=== PATIENT | male | born 1950 | race Caucasian/White ===

== ENCOUNTER 2017-12-30 18:07 | Inpatient (IN) | payer MEDICARE ==
[~2017-12-30] VITALS: Ht 152.4 cm; Wt 109.8 kg
[2017-12-30 18:10] VITALS: BP 232/97
[2017-12-30] MEDS ORDERED: VASOTEC20 MG PO (18:23)
[2017-12-30] MEDS ORDERED: AMLODIPINE BESY10 MG PO (18:23)
[2017-12-30] MEDS ORDERED: NEURONTIN 300300 M1 PO (18:24)
[2017-12-30] MEDS ORDERED: ASPIR 8181 MG PO (18:24)
[2017-12-30] MEDS ORDERED: CARDURA4 MG PO (18:24)
[2017-12-30 18:31] LABS: ABSOLUTE BASOPHILS 0.1 thou/uL (0.0-0.2); ABSOLUTE EOSINOPHILS 0.2 thou/uL (0.0-0.7); ABSOLUTE LYMPHOCYTES 1.8 thou/uL (0.8-5.3); ABSOLUTE MONOCYTES 0.5 thou/uL (0.0-1.2); ABSOLUTE NEUTROPHILS 4.5 thou/uL (1.6-8.1); BASOPHILS 0.8 %; EOSINOPHILS 2.4 %; HEMOGLOBIN 14.8 gm/dL (14.0-18.0); LYMPHOCYTES 25.6 %; MCH 31.3 pg (26.0-34.0); MCHC 34.3 g/dL (28.0-37.0); MCV 91.1 fL (80.0-100.0); MONOCYTES 7.1 %; MPV 8.8 fl. (7.2-11.1); NUCLEATED RBCS 0 /100WBC; PLATELET COUNT* 235 thou/uL (150-400); POLYS 64.1 %; RBC 4.72 mil/uL (4.50-6.00); RDW-CV 13.3 % (10.5-14.5)
[2017-12-30 18:39] LABS: ANION GAP 6 mmol/L (7-16); BUN 13 mg/dL (7-18); CALCIUM 8.7 mg/dL (8.5-10.1); CHLORIDE 103 mmol/L (98-107); CO2 29 mmol/L (21-32); CREATININE 1.2 mg/dL (0.6-1.3); GLUCOSE 136 mg/dL (70-99); POTASSIUM 3.6 mmol/L (3.5-5.1); SODIUM 138 mmol/L (136-145)
[2017-12-30 18:50] LABS: ALKALINE PHOSPHATASE 102 U/L (46-116); LIPASE 229 U/L (73-393); NT-PRO BRAIN NAT PEPTIDE 185 pg/mL (<300); SGOT 19 U/L (15-37); SGPT 27 U/L (30-65); TOTAL BILIRUBIN 0.3 mg/dL (<0.1-1.0); TOTAL PROTEIN 7.2 g/dL (6.4-8.2); TROPONIN-I LEVEL <0.06 ng/mL (<0.06)
[2017-12-30 19:29] VITALS: BP 158/73
[2017-12-30 20:00] VITALS: BP 157/82
[2017-12-30 23:40] LABS: URINE BILIRUBIN NEGATIVE (Negative); URINE BLOOD NEGATIVE (Negative); URINE CLARITY CLEAR; URINE COLOR STRAW; URINE GLUCOSE-RANDOM NEGATIVE (Negative); URINE KETONES NEGATIVE (Negative); URINE LEUKOCYTES-REFLEX NEGATIVE (Negative); URINE NITRITE-REFLEX NEGATIVE (Negative); URINE PROTEIN NEGATIVE (Negative); URINE SPECIFIC GRAVITY <= 1.005 (1.005-1.030); URINE UROBILINOGEN 0.2 E.U./dl (0.2-1.0)
[2017-12-31] VITALS: BP 158/63
[2017-12-31 00:59] LABS: HEMATOCRIT 40.7 % (42.0-52.0); HEMOGLOBIN 13.6 gm/dL (14.0-18.0); MCH 30.5 pg (26.0-34.0); MCHC 33.4 g/dL (28.0-37.0); MCV 91.4 fL (80.0-100.0); MPV 8.8 fl. (7.2-11.1); RBC 4.45 mil/uL (4.50-6.00); RDW-CV 13.3 % (10.5-14.5); WBC 5.5 thou/uL (4.0-11.0)
[2017-12-31 01:11] LABS: ANION GAP 7 mmol/L (7-16); BUN 12 mg/dL (7-18); CALCIUM 8.4 mg/dL (8.5-10.1); CHLORIDE 106 mmol/L (98-107); CO2 30 mmol/L (21-32); CREATININE 1.1 mg/dL (0.6-1.3); GLUCOSE 108 mg/dL (70-99); POTASSIUM 3.8 mmol/L (3.5-5.1); SODIUM 143 mmol/L (136-145); TROPONIN-I LEVEL <0.06 ng/mL (<0.06)
--- NOTE | 2017-12-31 02:29 | NUR ---
PT ADMITTED ON TELE FLOOR AT 1935 . ACCOMPANIED BY ER NURSE AND . PT IS ALERT, AWAKE, ORIENTED X4. AMBULATES TO BED ON HIS OWN. STEADY ON HIS FEET. VVS. ADMISSION ASSESSMENT AND HISTORY OBTAINED. REFER TO CHARTING. NO PAIN REPORTED. 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 MEDS GIVEN ORDERED. SOME BP MEDS WERE RESTARTED ON PT REQUEST AND AFTER OK RECEIVED FROM DR REGULATORY SPECIALIST. ENALAPRIL NOT GIVEN LISINORPIL WAS GIVEN ( DUPLICATION REASON). PT LAYING IN BED, EDUCATED ABOUT THE USE OF CALL LIGHT WHEN HELP IS NEEDED. CARDIO CONSULTED. PT IS NPO AFTER MIDNIGHT FOR CONSULT IN THE MORNING. WILL CONTINUE TO MONITOR.
[2017-12-31 04:00] VITALS: BP 162/80
--- NOTE | 2017-12-31 05:30 | NUR ---
PT HAS REFUSED FLU VACCINE
--- NOTE | 2017-12-31 07:00 | NUR ---
PT NITRO PILL PLACED IN PIXIS ( RETURN TO PHARMACY ) BOX
[2017-12-31 08:00] VITALS: BP 179/85
[2017-12-31 11:18] LABS: CHOLESTEROL 191 mg/dL (<200); HDL CHOLESTEROL 40 mg/dL (>40); LDL CHOLESTEROL 133 mg/dL (<100); TC:HDL 4.8 Ratio (Not establshd); TRIGLYCERIDE 93 mg/dL (<150); VLDL 19 mg/dL (<40)
[2017-12-31 11:19] LABS: SERUM ASSESSMENT Clear
[2017-12-31 11:59] VITALS: BP 174/83
--- NOTE | 2017-12-31 12:00 | EKG ---
[place] [address] ELECTROCARDIOGRAM REPORT Name: BROOK EWING Room: [address] ADM IN .R.#: [id number] Admission: 12/30/17 Attend Phys: Cornelius Rico, Discharge: Date of : 48 Report #: [id number] THIS REPORT FOR: //name// [facility] ED Test Date: 2017-12-30 Test Time: 18:12:23 Pat Name: BROOK EWING Department: Room: [facility] Gender: M Physical Biochemist: CLIFTON : 1950 Requested By: Durga Wisdom Order Number: [id number] MD: Hoang Hazel Measurements Intervals [place] Rate: 75 P: 79 [place]: 166 QRS: -12 QRSD: 111 T: 10 QT: 400 QTc: 447 Interpretive Statements Sinus rhythm Probable left atrial enlargement RSR' in V1 or V2, right VCD or RVH No previous ECG available for comparison Electronically Signed On 12-31-2017 12:00:02 CDT by Hoang Hazel [email or web address] <ELECTRONICALLY SIGNED> By: Hoang Hazel MD, FACC 12/31/17 1200 11 11 Hoang Hazel MD, [facility] /EPI
[2017-12-31 16:32] VITALS: BP 180/79
--- NOTE | 2017-12-31 18:14 | NUR ---
BELL RESTING IN BED. UP AD MADELIN IN ROOM. DENIES CURRETN CHEST PAIN. PLAN FOR CARDIAC CATH TOMORROW. VITAL SIGNS STABLE. HOURLY ROUNDING COMPLETED FOR PATIENT SAFETY. NPO AFTER MIDNIGHT FOR CARDIAC CATH
[2017-12-31 19:45] VITALS: BP 167/87
[2018-01-01] VITALS (13 sets, daily range): BP systolic 138–172; BP diastolic 68–88
[2018-01-01 04:56] LABS: HEMATOCRIT 42.2 % (42.0-52.0); HEMOGLOBIN 14.2 gm/dL (14.0-18.0); MCH 30.8 pg (26.0-34.0); MCHC 33.6 g/dL (28.0-37.0); MCV 91.7 fL (80.0-100.0); MPV 9.1 fl. (7.2-11.1); RBC 4.6 mil/uL (4.50-6.00); RDW-CV 13.4 % (10.5-14.5); WBC 6.5 thou/uL (4.0-11.0)
[2018-01-01 05:12] LABS: CALCIUM 8.7 mg/dL (8.5-10.1); CREATININE 1.2 mg/dL (0.6-1.3); MAGNESIUM 2.2 mg/dL (1.8-2.4)
--- NOTE | 2018-01-01 05:50 | NUR ---
END SHIFT: PT RESTED WELL. NO COMPLAINTS, NO PAIN. NSR/SB. HAS REMAINED NPO SINCE MN. AWAITING CATH PROCEDURE TODAY. ASSESSMENT UNCHANGED. VSS. SAFETY PRECAUTIONS IN PLACE. CALL LIGHT IN REACH. PERFORMED HOURLY ROUNDING. WILL CONT TO MONITOR.
--- NOTE | 2018-01-01 09:11 | CON ---
[address] [address] CONSULTATION Name: BROOK EWING Room: [address] IN ..#: [id number] Admission: 12/30/17 Attend Phys: Cornelius Rico, Discharge: Date of : 48 Report #: [id number] THIS REPORT FOR: //name// CC: Von Rico DATE OF SERVICE: 12/31/2017 INPATIENT CONSULTATION REASON FOR CONSULTATION: Chest pain. HISTORY OF PRESENT ILLNESS: The patient is a 67-year-old man with a history of prior bypass surgery, had a severe episode of centrally located and left-sided chest discomfort yesterday. He had this episode, which lasted 5-15 minutes long. His blood pressure is significantly elevated. It would not come down even after rechecking it and relaxing. He went to the Emergency Room and his blood pressure was still elevated and his ECG demonstrates a sinus rhythm, somewhat poor R-wave progression, but normal ST segments. This morning, his blood pressure is still elevated, but he is not having chest pain. He denies orthopnea or PND. He has been somewhat short of breath. He denies fevers or chills. He admits this chest pain has been going off and on for about a week and his symptoms did improve with his nitro and that also helped his blood pressure. PAST MEDICAL HISTORY: Somewhat complex. He had had a 3-vessel bypass surgery in 2000, he thinks, he spends his owusu in [place] and had bypass surgery in [facility] in the setting of an MD. Apparently, he had some bleeding postoperatively when he was on Plavix likely because of his MD and then had to have a pericardial window. He has a history of peripheral vascular disease, had a stent in his right iliac artery, which was also placed in [place], he thinks about 3 years ago. He does see a corporation lawyer fairly regularly in [place] at the side of his bypass and he reports he had a normal stress test within the last 12 months. He has a history of hypertension as noted above, hyperlipidemia. HOME MEDICATIONS: Include aspirin 81 mg daily, gabapentin 300 mg p.o. t.i.d., amlodipine 10 mg daily and enalapril 20 mg p.o. b.i.d. ALLERGIES: HE IS NOT ON A STATIN. HE GETS MUSCLE PAIN. HE HAD BLEEDING WITH PLAVIX, BUT THIS WAS IMMEDIATELY FOLLOWING SURGERY. HE DEVELOPED SEVERE [place] [address] CONSULTATION Name: KAYLINBROOKAIDA SWEET Room: [address]#: [id number] Admission: 12/30/17 Attend Phys: Cornelius Rico, Discharge: Date of : 48 Report #: [id number] SOCIAL HISTORY: He is . There is no tobacco or ethanol history. FAMILY HISTORY: Positive for heart disease. REVIEW OF SYSTEMS: HEMATOLOGIC: No anemia or bleeding disorders. He does bruise very easily. GASTROINTESTINAL: No nausea or vomiting. He denies any hematemesis or melena. GENITOURINARY: No dysuria or hematuria. NEUROLOGIC: Denies headaches, blurry vision or slurred speech. CARDIOVASCULAR: He denies any history of carotid vascular disease, apparently except his bypass surgery. HEMATOLOGIC: No anemia or bleeding disorders. CONSTITUTIONAL: No fevers or chills. PHYSICAL EXAMINATION: VITAL SIGNS: Blood pressure on presentation was 220/100, pulse was 77 in sinus rhythm, respiratory rate was 13. Weight is 242 pounds. GENERAL: This is a pleasant, moderately obese, elderly male, alert, in no apparent distress. HEENT: EOMs are intact. No facial asymmetry. NECK: Supple. No jugular venous distention. I cannot hear bruits. CARDIOVASCULAR: Regular. I cannot hear a murmur. LUNGS: Clear to auscultation. ABDOMEN: Soft, nontender. EXTREMITIES: There is no peripheral edema. PULSES: Bilateral femoral pulses are palpable. LABORATORY DATA: Electrocardiogram as noted above. Sodium is 143, potassium 3.8, chloride is 106, BUN is 12, creatinine 1.1. Troponin I is 0.06 x 2 sets. Lipids are pending. Chest x-ray: No acute cardiopulmonary abnormality. IMPRESSION: 1. Unstable angina. Symptoms are pretty much exactly what they were at the time of his myocardial infarction and bypass surgery over a decade ago. After discussing his findings with the patient, I recommend further evaluation with a diagnostic cardiac catheterization. 2. History of coronary artery bypass graft surgery. He has a 3-vessel coronary artery bypass graft, reports are not available. It is doubtful we will get them at the time of his heart catheterization tomorrow morning, we will try though. 3. History of pericardial window. I suspect this was due to postoperative complications. Details not available. 4. Peripheral vascular disease. He has a history of peripheral stenting to his right iliac artery. He has a fairly decent pulse though. 5. Hyperlipidemia. This is untreated and likely the etiology of his progressive coronary artery disease. He may be a candidate for injectable. [address] [address] CONSULTATION Name: BROOK EWING Room: [address]#: [id number] Admission: 12/30/17 Attend Phys: Cornelius Rico, Discharge: Date of : 48 Report #: [id number] 6. Hypertension, malignant. I would go ahead and try to use a beta-zenaida. He had troubles with Coreg, but I think metoprolol could be helpful as the patient does have some degree of unstable angina. We will need to monitor his heart rate. 7. The patient has no primary care provider at the [facility]. <ELECTRONICALLY SIGNED> By: Prateek Herzog MD, FACC 01/01/18 0911 1103 [id number] Hazel MD, FACC /nt
--- NOTE | 2018-01-01 11:00 | NUR ---
MET WITH PT AND TO DISCUSS HOME SITUATION/DC PLANNING. PT LIVES WITH , IS INDEPENDENT. USES NO EQUIPMENT AND DENIES ANY NEEDS AT DC. WILL FOLLOW
--- NOTE | 2018-01-01 17:55 | EKG ---
[place] [address] ELECTROCARDIOGRAM REPORT Name: BROOK EWING Room: [address] ADM IN M.R.#: [id number] Admission: 12/30/17 Attend Phys: Cornelius Rico, Discharge: Date of : 48 Report #: [id number] THIS REPORT FOR: //name// [facility] Test Date: 2018-01-01 Test Time: 15:20:45 Pat Name: BROOK EWING Department: Room: [address] Gender: M Financial Retirement Plan Specialist: : 1950 Requested By: Frank Fajardo Order Number: [id number] Clarita MD: Prateek Herzog Measurements Intervals [place] Rate: 56 P: 64 [place]: 176 QRS: -2 QRSD: 107 T: 3 QT: 438 QTc: 423 Interpretive Statements Sinus rhythm Possible left atrial enlargement RSR' in V1 or V2, probably normal variant Compared to ECG 12/30/2017 18:12:23 Right ventricular hypertrophy no longer present Electronically Signed On 01-01-2018 17:55:49 CDT by Prateek Herzog [email or web address] <ELECTRONICALLY SIGNED> By: Prateek Herzog MD, FACC 01/01/18 1755 1520 1520 Prateek Herzog MD, FACC /EPI
--- NOTE | 2018-01-01 18:57 | NUR ---
OLIVIANET RESTING IN BED. CURRENTLY BESTREST UNTIL 20:30 THIS EVEN ING HWE IS POST CARDIUAC CATH. RIGHT GROIN SITE CLEAN DRY INTACT WITH NO S/S OF HEMATOMA. HOURLY ROUNDING COMPLETED FOR PATIETN SAFETY. EXPECTED DISCHARGE TO HOME TOMORROW.
[2018-01-02] VITALS: BP 156/78
[2018-01-02 04:00] VITALS: BP 149/72
--- NOTE | 2018-01-02 04:35 | NUR ---
PATIENT PROGRESSING TOWARDS GOALS. DENIES CHEST PAIN, SOA OR NAUSEA. RIGHT GROIN SITE INTACT, NO HEMATOMA PRESENT. BP WNL. PAIN MANAGEMENT ACHIEVED. PT IS WANTING TO GO HOME. WAS ABLE TO SLEEP THROUGHOUT THE NIGHT. NO VOICED CONCERNS AT THIS TIME. WILL CONTINUE TO MONITOR.
[2018-01-02 04:43] LABS: HEMATOCRIT 38.8 % (42.0-52.0); HEMOGLOBIN 13.1 gm/dL (14.0-18.0); MCH 31.2 pg (26.0-34.0); MCHC 33.8 g/dL (28.0-37.0); MCV 92.3 fL (80.0-100.0); MPV 9.1 fl. (7.2-11.1); RBC 4.2 mil/uL (4.50-6.00); RDW-CV 13.4 % (10.5-14.5); WBC 6.2 thou/uL (4.0-11.0)
[2018-01-02 04:59] LABS: ALBUMIN 3.3 g/dL (3.4-5.0); CALCIUM 8.2 mg/dL (8.5-10.1); CREATININE 1.1 mg/dL (0.6-1.3); POTASSIUM 3.8 mmol/L (3.5-5.1); TOTAL BILIRUBIN 0.4 mg/dL (<0.1-1.0); TOTAL PROTEIN 5.8 g/dL (6.4-8.2); TROPONIN-I LEVEL 0.36 ng/mL (<0.06)
[2018-01-02 08:00] VITALS: BP 161/76
[2018-01-02 09:47] VITALS: BP 145/74
[2018-01-02 11:40] VITALS: BP 145/74
[2018-01-02] MEDS ORDERED: FISH OIL 1,0001 EAC1 PO (11:43)
[2018-01-02] MEDS ORDERED: BRILINTA90 MG PO (11:50)
[2018-01-02] MEDS ORDERED: CLONIDINE0.1 PO (11:52)
--- NOTE | 2018-01-02 16:14 | CARD ---
[address] [address] CARDIAC CATH REPORT Name: KAYLINBROOK MICKI Room: [address] IN [facility]#: [id number] Admission: 12/30/17 Attend Phys: Cornelius Rico, Discharge: 01/02/18 Date of : 48 Report #: [id number] THIS REPORT FOR: //name// APPROVED REPORT Study performed: 01/01/2018 12:53:54 Patient Details Patient Status: In-Patient Room #: 221 The patient is a 67 year-old male Event Personnel Frank Fajardo Pump Technician, Ale Mcdonald RN Nfl Player, Galina Faria RTR Monitor, Wan Ramirez Scrub Procedures Performed Art Access - R femoral artery* Left Heart Cath Coronaries, Bypass Grafts LHCCORCABG JUN Revasc Graft Single CIRC C9604 SVGREVSING Hemostasis w/ Angioseal Indication Unstable angina Risk Factors Hypercholesterolemia, Hypertension Previous Procedures/Diagnoses Previous CABG Admission/Lab Medications/Medications given during procedure Aspirin, Platelet Aff. Inhib., Aspirin PO 162 mg, Angiomax IV 38.4 mg per kg, Angiomax IV 16.5 mg per kg Procedure Narrative The patient was brought electively to the Cardiac Catheterization Laboratory and was prepped and draped in a sterile manner. The right femoral was infiltrated with 2% Lidocaine subcutaneous anesthesia. A 6 Fr pinnacle sheath was inserted into the right femoral artery. Coronary angiography was performed using coronary diagnostic catheters. The right coronary system was accessed and visualized with a Diagnostic 6Fr JR4 catheter. The left coronary system was accessed and visualized with a Diagnostic 6Fr JL4 catheter. The left ventricle was accessed and visualized with a Diagnostic 6Fr straight pigtail catheter. Left ventricular/Aortic Valve gradient assessed via catheter pullback. [place] [address] CARDIAC CATH REPORT Name: BROOK EWING Room: [address]#: [id number] Admission: 12/30/17 Attend Phys: Cornelius Rico, Discharge: 01/02/18 Date of : 48 Report #: [id number] projection. Pre-demployment femoral angiogram was performed . Closure device was deployed with a Fr Angioseal STS 6Fr. Hemostasis was obtained with manual pressure following sheath removal without any complications. The patient tolerated the procedure well and there were no complications associated with the procedure. There was no hematoma. Intraoperative Conscious Sedation Sedation start time: 13:37 Case end Time: 14:29 Fentanyl 200 mcg Versed 3 mg Contrast Type and Amount: Visipaque 460 ml [place] Artery Percent Stenosis #1 widely patent SOLORIO graft to the LAD #2 patent saphenous vein graft to marginal branch of the circumflex with 90% mid graft stenosis Diagnostic Cath Left Main 0% narrowing LAD 80% ostial narrowing with 90% proximal narrowing and 90% narrowing of the midportion with reciprocal filling of the distal LAD reflecting a patent SOLORIO graft Circumflex 75% proximal with 90% mid vessel narrowing with 60% diffuse narrowing of the first marginal branch with reciprocal flowing distally reflecting a patent graft to that marginal branch Right Coronary Total obstruction proximally with recanalization to fill a small distal system Hemodynamics The aortic pressure is 160/78 mmHg with a mean of 108 mmHg. The left ventricular pressure is 156/5 mmHg with a mean of mmHg. The left ventricular end diastolic pressure is 13 mmHg. Pullback from the left ventricle to the aorta revealed no gradient across the aortic valve. PCI Technique Lesion Percutaneous coronary intervention was performed on the midportion of the saphenous vein graft to the circumflex. The lesion stenosis prior to intervention was 90% with JB 3 flow. A IG: ProwaterFlex 180CM Guide Catheter was used to engage the ostium. A 6F LCB 100CM Interventional Guidewire was [place] [address] CARDIAC CATH REPORT Name: KAYLINBROOK SWEET Room: [address]#: [id number] Admission: 12/30/17 Attend Phys: Cornelius Rico, Discharge: 01/02/18 Date of : 48 Report #: [id number] BALLOON DILATION A Balloon catheter Mini Trek RX 2.0 X 12 was inserted and inflated up to 12.00atm for 14seconds. Additional Inflation: 12.00atm for 6seconds. STENT DEPLOYMENT A drug-eluting stent Xience Alpine RX 3.25X15 was inserted and inflated up to 14.00atm for 19seconds. Additional Inflation: 16.00atm for 9seconds. Additional Inflation: 18.00atm for 11seconds. Final angiography reveals 10 % stenosis with JB 3 flow. Conclusion #1 significant multivessel coronary artery disease characterized by the following: A 80% ostial and 90% proximal LAD stenosis with 90% mid vessel stenosis and reciprocal filling noted in the distal LAD reflecting a patent SOLORIO graft B 75% proximal with 90% midcircumflex stenosis with 60% narrowing throughout the first marginal branch of the circumflex C small right coronary artery totally occluded proximally with recanalization to fill a small distal system #2 graft study characterized by the following: A widely patent SOLORIO graft to the LAD B patent saphenous vein graft to the circumflex with 90% narrowing of the midportion of the graft #3 normal left ventricular systolic function, estimate ejection fraction being 65% #4 successful percutaneous coronary intervention with deployment of drug-eluting stent at site of 90% stenosis in the midportion of the vein graft to the circumflex with 10% residual narrowing and JB-3 flow the distal vessel Recommendations Cardiac Risk Reduction Program [place] [address] CARDIAC CATH REPORT Name: BROOK EWING Room: [address]#: [id number] Admission: 12/30/17 Attend Phys: Cornelius Rico, Discharge: 01/02/18 Date of : 48 Report #: [id number] Medications Administered Aspirin (any) Ticagrelor Diagnostic Cath Approved by: Frank Fajardo MD Date/Time: 01/02/2018 16:13:19 <ELECTRONICALLY SIGNED> By: Frank Fajardo MD, FACC 01/02/18 1614 1614 1614Frank Fajardo MD, FACC /INF
--- NOTE | 2018-01-02 16:26 | NUR ---
ORDER RECEIVED TO DISCHARGE BELL HOME TO SELF CARE. MED REC, MEDICATION EDUCAITONM STROKE EDUCAITON, NEED FOR FOLLOW UP APPOINTMENTS WITH CARDIOLOGY AND THE NEED FOR FOLLOW UP CARDIAC INTEREVENTIONS COVERED AND STATED UDERSTOOD. PATINET EDUCATED ON THE NEED FOR MEDICATION COMPLIANCE AND GIVEN ADEQUATE TIME TO HAVE ALL CONCERNS ADRESSED. BRILINTA SAMPLES GIVEN TO PATIENT BY CARDIOLOGY. HOULRY ROUNDING COMPLETED FOR PATINET SAFETY. RIGHT GROIN ACCESS SITE CLEAN/DRY/INTACT WITH NO S/S OF HEMATOMA FORMATION. PATIENT INSTRUCTED REGARDING LIFTING AND ACTIVITY LEVELS.
--- NOTE | 2018-01-02 18:14 | EKG ---
[place] [address] ELECTROCARDIOGRAM REPORT Name: BROOK EWING Room: [address] DIS IN M.R.#: [id number] Admission: 12/30/17 Attend Phys: Cornelius Rico, Discharge: 01/02/18 Date of : 48 Report #: [id number] THIS REPORT FOR: //name// [facility] Test Date: 2018-01-02 Test Time: 08:39:41 Pat Name: BROOK EWING Department: Room: [address] Gender: M Chronic Disease Manager: : 1950 Requested By: Frank Fajardo Order Number: [id number] Clarita MD: Prateek Herzog Measurements Intervals [place] Rate: 61 P: 30 [place]: 165 QRS: -9 QRSD: 111 T: 0 QT: 417 QTc: 420 Interpretive Statements Sinus rhythm RSR' in V1 or V2, right VCD or RVH Inferior infarct, old Baseline wander in lead(s) V1 Compared to ECG 01/01/2018 15:20:45 Right ventricular hypertrophy now present Myocardial infarct finding now present Electronically Signed On 01-02-2018 18:14:04 CDT by Prateek Herzog [email or web address] <ELECTRONICALLY SIGNED> By: Prateek Herzog MD, FACC 01/02/18 1814 8 Prateek Herzog MD, FACC /EPI
[2018-01-03] MEDS ORDERED: NITROGLYCERIN0.4 MG SUBLING (09:25)
== END 2018-01-02 12:32 | disposition home or self-care (01) | DRG 247 ==
LOC: M.ERS 18:07 → M.2W 18:49 → M.TBA-ER 18:49 → M.2W 19:35
PROVIDERS: Emergency Medicine Emergency Medical Services; Internal Medicine; Internal Medicine Cardiovascular Disease; ADMIT Family Medicine
PROC: 027034Z Dilation of Coronary Artery, One Artery with Drug-eluting Intraluminal Device, Percutaneous Approach (ICD-10-PCS; principal; 2018-01-02)
PROC: B2181ZZ Fluoroscopy of Left Internal Mammary Bypass Graft using Low Osmolar Contrast (ICD-10-PCS; principal; 2018-01-02)
PROC: B2151ZZ Fluoroscopy of Left Heart using Low Osmolar Contrast (ICD-10-PCS; principal; 2018-01-02)
PROC: B2111ZZ Fluoroscopy of Multiple Coronary Arteries using Low Osmolar Contrast (ICD-10-PCS; principal; 2018-01-02)
PROC: 4A023N7 Measurement of Cardiac Sampling and Pressure, Left Heart, Percutaneous Approach (ICD-10-PCS; principal; 2018-01-02)
PROC: B2121ZZ Fluoroscopy of Single Coronary Artery Bypass Graft using Low Osmolar Contrast (ICD-10-PCS; principal; 2018-01-02)
DX: I25.710 Atherosclerosis of autologous vein coronary artery bypass graft(s) with unstable angina pectoris (principal); Z68.42 Body mass index [BMI] 45.0-49.9, adult; I50.32 Chronic diastolic (congestive) heart failure; I11.0 Hypertensive heart disease with heart failure; I73.9 Peripheral vascular disease, unspecified; G62.9 Polyneuropathy, unspecified; E66.9 Obesity, unspecified; E78.00 Pure hypercholesterolemia, unspecified; M19.90 Unspecified osteoarthritis, unspecified site; I25.2 Old myocardial infarction; Z95.1 Presence of aortocoronary bypass graft; Z95.820 Peripheral vascular angioplasty status with implants and grafts; Z79.82 Long term (current) use of aspirin; Z79.899 Other long term (current) drug therapy; Z88.5 Allergy status to narcotic agent; Z88.8 Allergy status to other drugs, medicaments and biological substances; Z82.49 Family history of ischemic heart disease and other diseases of the circulatory system

== ENCOUNTER 2018-01-03 09:14 | Inpatient (IN) | payer MEDICARE ==
[~2018-01-03] VITALS: Ht 180.3 cm; Wt 109.1 kg
[2018-01-03] VITALS (7 sets, daily range): BP systolic 134–190; BP diastolic 66–99
[~2018-01-03 09:14] MED LIST: AMLODIPINE BESY10 MG PO; ASPIR 8181 MG PO; BRILINTA90 MG PO; CARDURA4 MG PO; CLONIDINE0.1 PO; FISH OIL 1,0001 EAC1 PO; NEURONTIN 300300 M1 PO; VASOTEC20 MG PO
[2018-01-03] MEDS ORDERED: NITROGLYCERIN0.4 MG SUBLING (09:25)
[2018-01-03 09:38] LABS: ABSOLUTE EOSINOPHILS 0.2 thou/uL (0.0-0.7); ABSOLUTE LYMPHOCYTES 1.3 thou/uL (0.8-5.3); ABSOLUTE MONOCYTES 0.4 thou/uL (0.0-1.2); ABSOLUTE NEUTROPHILS 5.4 thou/uL (1.6-8.1); BASOPHILS 0.7 %; EOSINOPHILS 2.1 %; HEMATOCRIT 39.9 % (42.0-52.0); HEMOGLOBIN 13.6 gm/dL (14.0-18.0); LYMPHOCYTES 17.4 %; MCH 30.9 pg (26.0-34.0); MCHC 34.2 g/dL (28.0-37.0); MCV 90.2 fL (80.0-100.0); MONOCYTES 5.2 %; MPV 8.8 fl. (7.2-11.1); NUCLEATED RBCS 0 /100WBC; PLATELET COUNT* 201 thou/uL (150-400); POLYS 74.6 %; RBC 4.42 mil/uL (4.50-6.00); RDW-CV 13.2 % (10.5-14.5); WBC 7.3 thou/uL (4.0-11.0)
[2018-01-03 09:47] LABS: CALCIUM 8.3 mg/dL (8.5-10.1); CREATININE 1.2 mg/dL (0.6-1.3); POTASSIUM 3.7 mmol/L (3.5-5.1); PROTIME 10.1 Seconds (9.20-11.50)
[2018-01-03 09:57] LABS: ALBUMIN 3.5 g/dL (3.4-5.0); TOTAL BILIRUBIN 0.6 mg/dL (<0.1-1.0); TOTAL PROTEIN 6.6 g/dL (6.4-8.2); TROPONIN-I LEVEL 0.07 ng/mL (<0.06)
--- NOTE | 2018-01-03 10:30 | NUR ---
PT ARRIVED ON THE UNIT FROM ER. REPORT TAKEN FROM VIVIENNE APARICIO. PT IS SR. HE IS A&O. ASSESSED PT AND DOCUMENTED. PT IS ON 2L OF 02. PT STATES HE HAS BURNING IN HIS CHEST AND RATES HIS PAIN A 3 ON PAIN SCALE. PT STATES IT IS A PRESSURE AND BURNING FEELING. VSS WNL. PT IS AFEBRILE. PT STATES HE GETS SOA ON EXHERTION. BED IS IN LOW POSITION CALL LIGHT IS IN REACH. WM.
--- NOTE | 2018-01-03 11:59 | NUR ---
FAB RET CALL PT ON REG DIET NPO AT MIDNIGHT.
--- NOTE | 2018-01-03 16:57 | NUR ---
CALLED CARDIO NURSE RE FLUID BOLUS FOR PT. NO NEW ORDERS AT THIS TIME. PT HAS 1300 OUT IN [place].
--- NOTE | 2018-01-03 17:25 | EKG ---
[place] [address] ELECTROCARDIOGRAM REPORT Name: BROOK EWING Room: [place] [address] ADM IN .R.#: [id number] Admission: 01/03/18 Attend Phys: Frank Fajardo MD, Discharge: Date of : 48 Report #: [id number] THIS REPORT FOR: //name// [facility] ED Test Date: 2018-01-03 Test Time: 09:18:09 Pat Name: BROOK EWING Department: Room: [facility] Gender: M Patient Transport Officer: CLIFTON : 1950 Requested By: Jalen Edgar Order Number: [id number] MD: Prateek Herzog Measurements Intervals [place] Rate: 78 P: 18 [place]: 162 QRS: -19 QRSD: 107 T: 4 QT: 387 QTc: 441 Interpretive Statements Sinus rhythm RSR' in V1 or V2, probably normal variant Inferior infarct, old, possible Compared to ECG 01/02/2018 08:39:41 Right ventricular hypertrophy no longer present Myocardial infarct finding still present Electronically Signed On 01-03-2018 17:25:47 CDT by Prateek Herzog [email or web address] <ELECTRONICALLY SIGNED> By: Prateek Herzog MD, FACC 01/03/18 1725 7 7 Prateek Herzog MD, FACC /EPI
--- NOTE | 2018-01-03 17:41 | NUR ---
PT HAS RESTED IN HIS ROOM THIS SHIFT WITH AT BEDSIDE. EDUCATION GIVEN ON DEMAND. HOURLY ROUNDING COMPLETE. FALL AGREEMENT AND PT RIGHTS SIGNED. PT HAS HAD THE PNEU SHOT AND REFUSED SCDS AND FLU SHOT.
--- NOTE | 2018-01-03 22:15 | NUR ---
PT ASSESSMENT COMPLETE. PT B/P ELEVATED. ORDERS TO RESTART B/P MEDS RECEIVED. ALL OTHER VSS. TRACING SR ON MONITOR. IV FLUSHING WITHOUT ISSUE. PT WILL BE NPO AFTER MN. PT EDUCATED ON DIET, VOICES UNDERSTANDING. SEE ASSESSMENT FOR FURTHER DETAILS. CLWR.
[2018-01-04] VITALS (19 sets, daily range): BP systolic 115–180; BP diastolic 62–88
--- NOTE | 2018-01-04 06:17 | NUR ---
PT HAS HAD NO COMPLICATIONS T/O THE REMAINDER OF THIS SHIFT. PT DENIES PAIN. PT HAS SLEPT WELL AND BLOOD PRESSURES HAVE COME DOWN. PT DENIES ANY FURTHER NEEDS. CLWR.
--- NOTE | 2018-01-04 12:15 | NUR ---
PT KNOWN FROM PREVIOUS ADMIT, READMITTED WITH CHEST PAIN AND IN EPIC CUPID SPECIALISTS. PT LIVES WITH AND IS INDEPENDENT, DO NOT ANTICIPATE ANY DC NEEDS. WILL FOLLOW
--- NOTE | 2018-01-04 12:34 | NUR ---
RECEIVED WRITTEN REPORT FROM KONRAD @ 8161.PT IS A/O X4, VSS,TRACING SR ON THE MONITOR.ASSESSMENT CHARTED.IV PATENT AND SALINE LOCKED.PT REMAINS NPO FOR CATH PROCEDURE TODAY.CONSENT ON CHART. PT IS CALM AND COOPERATIVE WITH NO C/O PAIN AT TIME OF ASSESSMENT.PT IS UP AD MADELIN IN ROOM.PT LEFT RESTING IN BED WITH CALL LIGHT WITHIN REACH.WILL CONTINUE TO MONITOR.
[2018-01-04 15:59] LABS: APTT 43.2 Seconds (25.0-31.3); INR 1.1; PROTIME 11.2 Seconds (9.20-11.50)
[2018-01-04 16:02] LABS: ANION GAP 5 mmol/L (7-16); BUN 10 mg/dL (7-18); CALCIUM 8.1 mg/dL (8.5-10.1); CHLORIDE 103 mmol/L (98-107); CHOLESTEROL 179 mg/dL (<200); CO2 28 mmol/L (21-32); CREATININE 1.2 mg/dL (0.6-1.3); GLUCOSE 140 mg/dL (70-99); HDL CHOLESTEROL 30 mg/dL (>40); LDL CHOLESTEROL 121 mg/dL (<100); POTASSIUM 3.7 mmol/L (3.5-5.1); SODIUM 136 mmol/L (136-145); TRIGLYCERIDE 141 mg/dL (<150); VLDL 28 mg/dL (<40)
[2018-01-04 16:09] LABS: SERUM ASSESSMENT Clear
--- NOTE | 2018-01-04 17:07 | EKG ---
[place] [address] ELECTROCARDIOGRAM REPORT Name: BROOK EWING Room: [place] [address] ADM IN M.R.#: [id number] Admission: 01/03/18 Attend Phys: Frank Fajardo MD, Discharge: Date of : 48 Report #: [id number] THIS REPORT FOR: //name// [facility] Test Date: 2018-01-04 Test Time: 13:59:45 Pat Name: BROOK EWING Department: Room: [place] [address] Gender: M Infection Control Preventionist: [id number] : 1950 Requested By: Frank Fajardo Order Number: [id number] Reading MD: Prateek Herzog Measurements Intervals [place] Rate: 58 P: 23 [place]: 171 QRS: -6 QRSD: 108 T: 5 QT: 417 QTc: 410 Interpretive Statements Sinus rhythm Possible left atrial enlargement Abnormal R-wave progression, early transition Baseline wander in lead(s) V3 Compared to ECG 01/03/2018 09:18:09 Myocardial infarct finding no longer present Electronically Signed On 01-04-2018 17:07:24 CDT by Prateek Herzog [email or web address] <ELECTRONICALLY SIGNED> By: Prateek Herzog MD, FACC 01/04/18 1707 1359 1359 Prateek Herzog MD, FAC /EPI
--- NOTE | 2018-01-04 17:13 | NUR ---
VSS,CARDIAC MONITORING IN PLACE WITH NO CHANGES.CATH PROCEDURE COMPLETED.POST CATH VITAL SIGNS COMPLETED.CATH SITE CLEAN,DRY, AND INTACT. PT REMOVED FROM BEDREST @ 1830.NO C/O PAIN.IVF IINFUSING PER ORDERS.PT INFORMED OF PLAN OF CARE AND COMMUNICATES UNDERSTANDING.HOURLY ROUNDING COMPLETED FOR PT SAFETY.CALL LIGHT AND FALL PRECAUTIONS IN PLACE.WILL CONTINUE TO MONITOR FOR DURATION OF SHIFT.
[2018-01-05] VITALS: BP 160/70
--- NOTE | 2018-01-05 02:19 | NUR ---
PT CARE ASSUMED AT 1930. SAT MAINTAINED IN RA. ALERT AND ORIENTED X4. SB TO SR WITH BBB RUNNING ON TELE MONITOR. UP ADLIB. CATH SITE, LFT GROIN C/D/I, NO SIGNS OF BLEEDING. DENIES PAIN AND SOB. WILL CONTINUE TO MONITOR.
[2018-01-05 04:44] VITALS: BP 164/79
[2018-01-05 05:20] LABS: HEMATOCRIT 38.7 % (42.0-52.0); MCH 31.1 pg (26.0-34.0); MCHC 33.5 g/dL (28.0-37.0); MCV 92.6 fL (80.0-100.0); MPV 9.1 fl. (7.2-11.1); RBC 4.18 mil/uL (4.50-6.00); RDW-CV 13.5 % (10.5-14.5); WBC 8.2 thou/uL (4.0-11.0)
[2018-01-05 05:57] LABS: ALBUMIN 3.3 g/dL (3.4-5.0); CALCIUM 8.3 mg/dL (8.5-10.1); CREATININE 1.1 mg/dL (0.6-1.3); POTASSIUM 4.3 mmol/L (3.5-5.1); TOTAL BILIRUBIN 0.6 mg/dL (<0.1-1.0); TOTAL PROTEIN 5.9 g/dL (6.4-8.2); TROPONIN-I LEVEL 0.26 ng/mL (<0.06)
--- NOTE | 2018-01-05 06:44 | NUR ---
PT ALERT AND ORIENTED X4. SAT MAINTAINED ON RA. CATH SITE, LFT GROIN C/D/I. UP ADLIB. SR TO SR WITH BBB RUNNING ON TELE MONITOR. CALL LIGHT WITHIN REACH AND FALL PRECAUTIONS MAINTAINED. WILL CONTINUE TO MONITOR.
[2018-01-05 08:00] VITALS: BP 137/79
--- NOTE | 2018-01-05 09:00 | NUR ---
RECEIVED REPORT FROM KONRAD/DEEJAY PALAFOX. ASSUME CARE OF PT AT 0730. STREETS AND BUILDINGS DECORATOR IN PLACE NSR. VSS. AM ASSESSMENT COMPLETED CHARTED. PT ALERT AND ORIENTED X 4. DENIES ANY PAIN OR DISCOMFORT AT THIS TIME. PT IS ON ROOM AIR. UP AD MADELIN. IV FLUIDS INFUSING PER ORDER. CATH SITE CLEAN DRY AND INTACT. PT LEFT SITTING IN CHAIR WITH CALL LIGHT IN REACH. PT OKAY FOR DISCHARGE. PAPERWORK COMPLETED AND GIVEN TO PT. SCRIPT GIVEN WITH EDUCATION. IV REMOVED. STREETS AND BUILDINGS DECORATOR REMOVED AND RETURNED TO NURSING STATION. ALL PERSONAL BELONGINGS PACKED AND TAKEN WITH PT. PT WHEELED OUT NURSING STAFF TO PERSONAL VEHICLE.
[2018-01-05 10:58] VITALS: BP 129/71
[2018-01-05 12:00] VITALS: BP 104/62
--- NOTE | 2018-01-05 12:12 | EKG ---
[place] [address] ELECTROCARDIOGRAM REPORT Name: BROOK EWING Room: [place] [address] ADM IN M.R.#: [id number] Admission: 01/03/18 Attend Phys: Frank Fajardo MD, Discharge: Date of : 48 Report #: [id number] THIS REPORT FOR: //name// [facility] Test Date: 2018-01-05 Test Time: 08:08:11 Pat Name: BROOK EWING Department: Room: [place] [address] Gender: M Weaver Hand Loom: : 1950 Requested By: Frank Fajardo Order Number: [id number] Reading MD: Bernard Ramos Measurements Intervals [place] Rate: 56 P: 47 ME: 164 QRS: -5 QRSD: 109 T: 5 QT: 438 QTc: 423 Interpretive Statements Sinus bradycardia Probable left atrial enlargement RSR' in V1 or V2, right VCD or RVH Baseline wander in lead(s) V1,V3 Compared to ECG 01/04/2018 13:59:45 no change Electronically Signed On 01-05-2018 12:11:55 CDT by Bernard Ramos [email or web address] <ELECTRONICALLY SIGNED> By: Bernard Ramos MD, [facility] 01/05/18 1211 0808 [id number] Bernard Ramos MD, [facility] /EPI
[2018-01-05] MEDS ORDERED: EFFIENT10 MG PO (12:22)
[2018-01-05 12:33] VITALS: BP 129/71
--- NOTE | 2018-01-06 11:16 | CARD ---
[address] [address] CARDIAC CATH REPORT Name: BROOK EWING Room: [address] IN ..#: [id number] Admission: 01/03/18 Attend Phys: Frank Fajardo MD, Discharge: 01/05/18 Date of : 48 Report #: [id number] THIS REPORT FOR: //name// APPROVED REPORT Study performed: 01/04/2018 09:46:10 Patient Details Patient Status: In-Patient Room #: The patient is a 67 year-old male Event Personnel Frank Fajardo Network Lead, Gale Faith RN Administrative Clerk, Roberta Garcia ScrubGiana Jessica RTR Monitor Procedures Performed Left Heart Cath Coronaries, Bypass Grafts; percutaneous coronary intervention with deployment of sequential drug-eluting stents at the sites of significant proximal and mid circumflex stenosis Indication Unstable angina Risk Factors Hypercholesterolemia, Hypertension Previous Procedures/Diagnoses Previous CABGPrevious PCI Admission/Lab Medications/Medications given during procedure Aspirin, Platelet Aff. Inhib., Angiomax bolus and infusion Procedure Narrative The patient was brought electively to the Cardiac Catheterization Laboratory and was prepped and draped in a sterile manner. The left femoral was infiltrated with 2% Lidocaine subcutaneous anesthesia. A [place] 6 FR sheath was inserted into the right femoral artery. Coronary angiography was performed using coronary diagnostic catheters. The right coronary system was accessed and visualized with a Diagnostic JR4 catheter. The left coronary system was accessed and visualized with a Diagnostic JL4 catheter. The left ventricle was accessed and visualized with a Diagnostic Straight Pigtail catheter. Left ventricular/Aortic Valve gradient assessed via catheter pullback. Pre-demployment femoral angiogram was [place] [address] CARDIAC CATH REPORT Name: BROOK EWING Room: [address]#: [id number] Admission: 01/03/18 Attend Phys: Frank Fajardo MD, Discharge: 01/05/18 Date of : 48 Report #: [id number] device was deployed with a Fr Angioseal STS 6Fr. Intraoperative Conscious Sedation Sedation start time: 11:06 Case end Time: 12:26 Fentanyl 75 mcg Versed 3 mg Fluoro Time: 22.1 minutes Dose: DAP [id number] cGycm2 2810 mGy Contrast Type and Amount: Visipaque 205 ml [place] Artery Percent Stenosis #1 widely patent saphenous vein graft to the marginal branch of the circumflex with a widely patent mid graft stent #2 previously defined widely patent SOLORIO graft to the LAD Diagnostic Cath Left Main 0% narrowing LAD A 80% ostial stenosis followed by 90% proximal narrowing with 80% mid vessel stenosis and reciprocal flow distally reflecting a patent SOLORIO graft Circumflex 75% proximal circumflex narrowing with 90% heavily calcified mid circumflex stenosis; there was 60% tubular narrowing of the prominent first marginal branch with a patent graft to that branch noted Right Coronary 100% proximal occlusion with faint right to right collaterals filling a small distal system Left Ventriculography Left Ventriculography was not performed. Hemodynamics The aortic pressure is 156/78 mmHg with a mean of 109 mmHg. The left ventricular pressure is 149/4 mmHg with a mean of mmHg. The left ventricular end diastolic pressure is 16 mmHg. PCI Technique Lesion Anticoagulation was achieved with Angiomax. Patient was preloaded with Angiomax IV 16.5 mg per kg. Percutaneous coronary intervention was performed on the mid circumflex artery segment. The lesion stenosis prior to intervention was 90% with JB 3 flow. A 6F XB LAD 3.5 Guide Catheter was used to engage the ostium. A IG: BMW 190cm Interventional Guidewire was used to cross the lesion. [place] [address] CARDIAC CATH REPORT Name: BROOK EWING Room: [address]#: [id number] Admission: 01/03/18 Attend Phys: Frank Fajardo MD, Discharge: 01/05/18 Date of : 48 Report #: [id number] A Balloon catheter NC Euphora 2.75x12 was inserted and inflated up to 18.00atm for 18seconds. Additional Inflation: 20.00atm for 15seconds. STENT DEPLOYMENT A drug-eluting stent Xience Alpine RX 2.75X15 was inserted and inflated up to 16atm for 15seconds. POST STENT DEPLOYMENT BALLOON DILATION A Balloon catheter NC Trek RX 3.0 X 8 was inserted and inflated up to 18atm for 10seconds. Final angiography reveals 10 % stenosis with JB 3 flow. COMMENTS Mid circumflex lesion was heavily calcified requiring significant lesion preparation prior to stent deployment BALLOON DILATION A Balloon catheter was inserted and inflated up to 22.00atm for 20seconds. STENT DEPLOYMENT A drug-eluting stent Xience Alpine RX 3.0X8 was inserted and inflated up to 12atm for 13seconds. Additional Inflation: 15atm for 10seconds. Additional Inflation: 16atm for 10seconds. PCI Technique Lesion 2 Percutaneous Coronary Intervention was performed on the proximal circumflex artery segment. The lesion stenosis prior to intervention was 75% with JB 3 flow. Stent Deployment A drug-eluting stent Xience Alpine RX 3.0X8 was inserted and inflated up to 15atm for 15seconds. Final angiography reveals 0 % stenosis with JB 3 flow. PCI Technique Lesion Percutaneous coronary intervention was performed on the mid circumflex artery segment. BALLOON DILATION A Balloon catheter NC Trek RX 3.0 X 12 was inserted and inflated up to 14.00atm for 5seconds. Additional Inflation: 12.00[place]m [place] [address] CARDIAC CATH REPORT Name: BROOK EWING Room: [address]#: [id number] Admission: 01/03/18 Attend Phys: Frank Fajardo MD, Discharge: 01/05/18 Date of : 48 Report #: [id number] 12seconds. STENT DEPLOYMENT A drug-eluting stent Xience Alpine RX 2.75X15 was inserted and inflated up to 12.00atm for 14seconds. Additional Inflation: 17.00atm for 15seconds. POST STENT DEPLOYMENT BALLOON DILATION A Balloon catheter NC Trek RX 3.0 X 8 was inserted and inflated up to 14.00atm for 14seconds. Additional Inflation: 14atm for 3seconds. Conclusion #1 severe coronary artery disease characterized by the following: A 80% ostial with 90% proximal LAD stenosis and 80% tubular mid vessel narrowing with reciprocal flow distally reflecting a patent SOLORIO graft B 75% proximal and 90% heavily calcified mid circumflex stenosis with 60% tubular narrowing of the prominent first marginal branch with reciprocal flow reflecting a patent graft to that vessel C small nondominant right coronary artery with 100% proximal occlusion and faint right to right collaterals filling a small distal system #2 graft study characterized by the following A widely patent saphenous vein graft to marginal branch of the circumflex with widely patent mid graft stent B as previously defined widely patent SOLORIO graft to the LAD #3 mild systemic systolic hypertension and mild elevation of left ventricular end-diastolic pressure at rest #4 successful percutaneous coronary intervention with deployment of sequential drug-eluting stents at the sites of 75% proximal and 90% heavily calcified mid circumflex stenosis with 0 and 10% residual narrowings and JB-3 flow the distal vessel Recommendations Cardiac Risk Reduction Program [facility] [address] [address] CARDIAC CATH REPORT Name: BROOK EWING Room: [address] IN M.R.#: [id number] Admission: 01/03/18 Attend Phys: Frank Fajardo MD, Discharge: 01/05/18 Date of : 48 Report #: [id number] Medications Administered Aspirin (any) Prasugrel Diagnostic Cath Approved by: Frank Fajardo MD Date/Time: 01/06/2018 11:14:35 <ELECTRONICALLY SIGNED> By: Frank Fajardo MD, [facility] 01/06/18 1115 1115 1115Frank Fajardo MD, FACC /INF
--- NOTE | 2018-01-06 12:23 | H ---
[place] [address] HISTORY AND PHYSICAL Name: BROOK EWING Room: [address] IN ..#: [id number] Admission: 01/03/18 Attend Phys: Frank Fajardo MD, Discharge: 01/05/18 Date of : 48 Report #: [id number] THIS REPORT FOR: //name// CC: MICKI Fajardo Physician staff DATE OF SERVICE: 01/03/2018 HISTORY OF PRESENT ILLNESS: The patient is a very pleasant 59-year-old male who was admitted this past weekend with chest pain. He was felt to have an acute coronary syndrome and ultimately underwent cardiac catheterization on 01/01/2018. The patient has a history of complex coronary artery disease status post remote coronary artery bypass grafting with underlying hypertension, hypercholesterolemia and weight excess. At the time of discharge, he was placed on dual antiplatelet therapy constituted of aspirin and Brilinta. Today, he noted unexplained shortness of breath and mild chest discomfort. He sought assistance in the ER and EKG revealed no evidence for acute myocardial injury enzymatic analysis. At the time of my assessment, his dyspnea and chest discomfort had remitted. On 01/01/2018, he underwent stenting of the vein graft to the circumflex. He had widely patent SOLORIO graft to the LAD. He also had significant disease in the bois [place]te circumflex, not filled well by that graft with tandem 70% and 90% stenosis in the proximal and mid circumflex. The patient has been receiving dual antiplatelet therapy as well as antihypertensive and lipid-lowering therapy. PAST MEDICAL HISTORY: Remarkable for weight excess, hypertension, hypercholesterolemia. SOCIAL HISTORY: He is not a current cigarette smoker. He is . REVIEW OF SYSTEMS: Remarkable for the following: PULMONARY: He notes dyspnea, which is unexplained and maybe secondary to the Brilinta, which was recently instituted. GENERAL: He notes modest weight excess. PHYSICAL EXAMINATION: GENERAL: Reveals moderately overweight [place] [address] HISTORY AND PHYSICAL Name: BROOK EWING Room: [address] IN ..#: [id number] Admission: 01/03/18 Attend Phys: Frank Fajardo MD, Discharge: 01/05/18 Date of : 48 Report #: [id number] VITAL SIGNS: Blood pressure is 140/70, pulse rate 74, respirations 18 per minute. NECK: Jugular venous pressure is normal. CHEST: Clear. CARDIAC: Reveals normal first and second heart sounds with an S4 gallop. ABDOMEN: Mildly obese. EXTREMITIES: Reveal minimal ecchymosis of the recent right femoral site of catheterization. Extremities are without edema with intact femoral, pedal and radial pulses. EKG revealed sinus rhythm, no acute ischemic changes. Remainder of lab is pending. IMPRESSION: 1. Coronary artery disease with recent acute coronary syndrome, status post stenting of the vein graft to the circumflex. 2. Complex coronary artery disease with unapproached disease in the bois forte circumflex on the catheterization of 01/01/2018. 3. Hypertension. 4. Hyperlipidemia. 5. Status post remote coronary artery bypass grafting. 6. Exogenous obesity. RECOMMENDATIONS: 1. Would discontinue Brilinta and substitute Effient at a dosage of 60 mg initially and 10 mg daily with aspirin continued at 81 mg daily. 2. Would consider recatheterization 01/04/2018 with documentation of the patency of the graft to the circumflex in the context of recurrent chest pain. If that has remained satisfactory, I would consider intervention to the bois [place]te circumflex in the proximal mid portion as aforementioned. Critical care time is 35 minutes from 14:55-15:30 on 01/03/2018. <ELECTRONICALLY SIGNED> By: Frank Fajardo MD, FACC 01/06/18 1223 1602 [id number] Fajardo MD, FACC /nt
--- NOTE | 2018-01-06 12:23 | D ---
[address] [address] DISCHARGE SUMMARY Name: BROOK EWING Room: [address] IN M.R.#: [id number] Admission: 01/03/18 Attend Phys: Frank Fajardo MD, Discharge: 01/05/18 Date of : 48 Report #: [id number] THIS REPORT FOR: //name// CC: MICKI Fajardo Physician staff DATE OF SERVICE: 01/05/2018 FINAL DISCHARGE DIAGNOSES: 1. Unstable angina. 2. Status post recent stenting of the vein graft to the circumflex and stenting of the [place] circumflex on 01/04/2018. 3. Status post coronary artery bypass grafting. 4. Hypertension. 5. Hyperlipoproteinemia. 6. Modest exogenous obesity. PROCEDURES: 01/04/2018 -- left heart catheterization, selective coronary arteriography, aortic coronary saphenous vein graft study, and percutaneous coronary intervention of the circumflex with deployment of 2 drug-eluting stents. The patient is a very pleasant 67-year-old male with coronary artery disease. He presented with an acute coronary syndrome and underwent stenting of the saphenous vein graft to the circumflex last week. He presented with dyspnea and chest discomfort to the ER 3 days later, the dyspnea probably being related to Brilinta as it remitted after change from Brilinta to Effient. He was scheduled for a staged procedure of the circumflex and in this setting, elected to proceed with the recatheterization, which revealed a widely patent stent in this vein graft to the obtuse marginal branch with high-grade sequential lesions in the posterior division of the circumflex. I deployed 2 drug-eluting stents in the proximal and mid portion of the circumflex with 0 and 10% residual narrowing following stent deployment and JB 3 flow of the distal vessel. He did well post-procedurally with troponin less than 0.06, hemoglobin of 13.0, white blood cell count of 8200 with 217,000 platelets. Sodium 140, potassium 4.3, BUN 10, creatinine 1.1, glucose 115 mg percent. He ambulated in the hallways without difficulty and there was good hemostasis at the femoral site of catheterization. He was discharged to home on the following medications: Amlodipine 10 mg daily, aspirin 81 mg daily, clonidine 0.1 mg p.r.n. elevated blood pressure at home, doxazosin 4 mg at bedtime, gabapentin 300 mg t.i.d., fish oil one tablet 1000 mg daily, prasugrel or Effient 10 mg daily with additional 30 mg dose given periprocedurally with 60 mg as a loading dose when he was rehospitalized, [place] [address] DISCHARGE SUMMARY Name: BROOK EWING Room: [address] IN M.R.#: [id number] Admission: 01/03/18 Attend Phys: Frank Fajardo MD, Discharge: 01/05/18 Date of : 48 Report #: [id number] He is scheduled to return to see the nurse practitioner within the next week in the context of his prior non-ST segment elevation infarction, and I will plan to see him in 4-6 weeks for followup. Thus, the patient is discharged to home in stable condition on the aforementioned medications with followup as iterated above. <ELECTRONICALLY SIGNED> By: Frank Fajardo MD, [facility] 01/06/18 1223 0926 [id number] Fajardo MD, [facility] /nt
== END 2018-01-05 13:30 | disposition home or self-care (01) | DRG 246 ==
LOC: M.ERS 09:14 → M.TBA-ER 09:59 → M.2W 09:59
PROVIDERS: Emergency Medicine; Nurse Practitioner Family; ADMIT Internal Medicine
DX: I25.110 Atherosclerotic heart disease of native coronary artery with unstable angina pectoris (principal); I50.32 Chronic diastolic (congestive) heart failure; I73.9 Peripheral vascular disease, unspecified; G62.9 Polyneuropathy, unspecified; M19.90 Unspecified osteoarthritis, unspecified site; I10 Essential (primary) hypertension; E78.5 Hyperlipidemia, unspecified; E66.09 Other obesity due to excess calories; Z68.33 Body mass index [BMI] 33.0-33.9, adult; Z95.820 Peripheral vascular angioplasty status with implants and grafts; Z95.5 Presence of coronary angioplasty implant and graft; Z88.6 Allergy status to analgesic agent; Z88.8 Allergy status to other drugs, medicaments and biological substances

== ENCOUNTER → 2019-02-05 | Outpatient (CLI) | payer MEDICARE ==
[~2019-02-05] MED LIST changes: +EFFIENT10 MG PO; +NITROGLYCERIN0.4 MG SUBLING
[2019-02-05 15:22] LABS: CALCIUM 9.5 mg/dL (8.5-10.1); CREATININE 1.6 mg/dL (0.6-1.3); POTASSIUM 4.4 mmol/L (3.5-5.1)
== END ==
LOC: M.LAB 14:50
PROVIDERS: Nurse Practitioner
DX: I10 Essential (primary) hypertension (principal)

== ENCOUNTER → 2019-02-14 | Outpatient (CLI) | payer MEDICARE ==
[2019-02-14 11:28] LABS: CALCIUM 9.2 mg/dL (8.5-10.1); CREATININE 1.4 mg/dL (0.6-1.3); POTASSIUM 4.2 mmol/L (3.5-5.1)
== END ==
LOC: M.LAB 11:01
PROVIDERS: Nurse Practitioner
DX: I10 Essential (primary) hypertension (principal)

== ENCOUNTER → 2019-03-21 | Outpatient (CLI) | payer MEDICARE ==
[2019-03-21 08:23] LABS: CALCIUM 8.8 mg/dL (8.5-10.1); CREATININE 1.6 mg/dL (0.6-1.3); POTASSIUM 4.1 mmol/L (3.5-5.1)
== END ==
LOC: M.LAB 08:01
PROVIDERS: Nurse Practitioner
DX: I10 Essential (primary) hypertension (principal)